=== PATIENT | female | born 1930 | race Caucasian/White ===

== ENCOUNTER 2017-10-13 15:03 | Emergency (ER) | payer MEDICARE, OTHER ==
[~2017-10-13] VITALS: Ht 162.6 cm; Wt 71.0 kg
[~2017-10-13 15:03] MED LIST: BUPR-197 PO; LEXA20TA PO; OXYC-103 PO; PROT40TA PO; SIMV5TAB32 PO; SYNT88TA PO
[2017-10-13 15:07] VITALS: BP 170/69; PULSE 86; RESP 18; TEMP 97.5; O2SAT 99
[2017-10-13 17:08] LABS: AUTOMATED NEUTROPHIL # 8.3 TH/MM3 (1.8-7.7); BASOPHIL # 0.1 TH/MM3 (0-0.2); BASOPHIL % 0.7 % (0.0-2.0); EOSINOPHIL # 0.1 TH/MM3 (0-0.4); EOSINOPHIL % 0.8 % (0.0-4.0); HEMATOCRIT 39.5 % (35.0-46.0); HEMOGLOBIN 14.4 GM/DL (11.6-15.3); LYMPH % 11.1 % (9.0-44.0); LYMPHOCYTE # 1.2 TH/MM3 (1.0-4.8); MEAN CELL VOLUME 93.5 FL (80.0-100.0); MEAN PLATELET VOLUME 9.3 FL (7.0-11.0); MONOCYTE # 0.8 TH/MM3 (0-0.9); NEUT % 79.4 % (16.0-70.0); PLATELET COUNT 299 TH/MM3 (150-450); RED BLOOD COUNT 4.23 MIL/MM3 (4.00-5.30); RED CELL DISTRIBUTION WIDTH 13.5 % (11.6-17.2); WHITE BLOOD COUNT 10.5 TH/MM3 (4.0-11.0)
[2017-10-13 17:12] LABS: MEAN CORPUSCULAR HGB CONC 36.4 % (32.0-36.0)
[2017-10-13 17:27] LABS: ALBUMIN 3.4 GM/DL (3.4-5.0); AST (GOT) 10 U/L (15-37); BICARBONATE 24.8 MEQ/L (21.0-32.0); BLOOD UREA NITROGEN 14 MG/DL (7-18); CALCIUM 9.3 MG/DL (8.5-10.1); CHLORIDE 108 MEQ/L (98-107); CREATININE 0.96 MG/DL (0.50-1.00); GLOMERULAR FILTRATION RATE 55 ML/MIN (>89); GLUCOSE,RANDOM 75 MG/DL (74-106); SODIUM (NA) 143 MEQ/L (136-145)
[2017-10-13 17:28] LABS: ALT (GPT) 10 U/L (10-53)
[2017-10-13 17:31] LABS: ALKALINE PHOSPHATASE 118 U/L (45-117); TOTAL BILIRUBIN ADULT 0.3 MG/DL (0.2-1.0); TOTAL PROTEIN 6.8 GM/DL (6.4-8.2)
[2017-10-13] MEDS ORDERED: [UNRECOGNIZED DRUG - CODE] PO (17:49)
[2017-10-13] MEDS ORDERED: TRAM50TA PO (17:49)
[2017-10-13] MEDS ORDERED: BUSP15TA PO (17:49)
[2017-10-13] MEDS ORDERED: PROZ40CA PO (17:49)
[2017-10-13 18:07] VITALS: BP 150/65; PULSE 72; RESP 17; O2SAT 99
[2017-10-13] MEDS ORDERED: POTASSIUM CHLORIDE 20 MEQ CONTROLLED RELEASE TAB PO ONE (18:15)
--- NOTE | 2017-10-13 18:22 | PD ---
HPI Chief Complaint: Psychiatric Symptoms Time Seen by Provider: 17:49 Travel History International Travel<30 days: No Contact w/Intl Traveler<30days: No Traveled to known affect area: No History of Present Illness HPI 86-year-old female presents to the emergency Department voluntarily for psychiatric evaluation. She was sent in by her primary care provider, Dr. Mata. Patient denies suicidal ideation, but says she "just wants to ." She says she doesn't want to hurt herself. Reports depression, sadness and anxiety. Says she "just doesn't want to wake up." She says she is all alone and her 2-1/2 years ago. She doesn't have any family. She does have friends and lives in a detention facility. She denies auditory or visual hallucinations. Denies illicit drug use, EtOH. She has no emergent medical complaints at this time. Denies chest pain, shortness of breath, abdominal pain, dysuria, change in stool. Denies recent illness. Onset unknown. Duration unknown. Aggravated by the feelings of being alone. No known relieving factors. Takes Prozac, Ambien, BuSpar, and clonazepam. History of depression. Denies other significant past medical history. Has no other medical complaints. No other modifying factors or associated signs and symptoms. PFSH Past Medical History Autoimmune Disease: No Blood Disorders: No Anxiety: Yes Depression: Yes Cancer: No High Cholesterol: Yes Chemotherapy: No Diabetes: No Diminished Hearing: Yes (BILAT [place]) Endocrine: Yes GERD: No Glaucoma: No Genitourinary: No Hepatitis: No Hiatal Hernia: No Immune Disorder: No Kidney Stones: No Psychiatric: Yes Reproductive: No Radiation Therapy: No Renal Failure: No Sickle Cell Disease: No Thyroid Disease: Yes (HYPO) Ulcer: No Tetanus Vaccination: Unknown Past Surgical History Abdominal Surgery: Yes (RUPTURED SPLEEN) AICD: No Appendectomy: No Arteriovenous Shunt: No Cholecystectomy: Yes Insulin Pump: No Joint Replacement: No Pacemaker: No Social History Alcohol Use: No Tobacco Use: No Substance Use: No Allergies-Medications (Allergen,Severity, Reaction): Coded Allergies: Sulfa (Sulfonamide Antibiotics) (Unverified Allergy, Severe, 10/13/17) Reported Meds & Prescriptions Reported Meds & Active Scripts Active Reported Anacin 400-32 mg Tablet (Aspirin/Caffeine) 400 Mg-32 Mg Tablet PO 6XDAY PRN Buspirone (Buspirone HCl) 15 Mg Tab 15 Mg PO TID PRN Tramadol (Tramadol HCl) 50 Mg Tab 50 Mg PO Q4H PRN Prozac (Fluoxetine HCl) 40 Mg Cap 40 Mg PO DAILY Review of Systems Except as stated in HPI: all other systems reviewed are Neg Physical Exam Narrative GENERAL: Well-nourished, well-developed elderly, female patient, in no acute distress SKIN: Warm and dry. HEAD: Atraumatic. Normocephalic. EYES: Pupils equal and round. ENT: Mucosa pink and moist. NECK: Supple. Trachea midline. CARDIOVASCULAR: Regular rate and rhythm. No murmur appreciated. RESPIRATORY: No accessory muscle use. Clear to auscultation. Breath sounds equal bilaterally. GASTROINTESTINAL: Abdomen soft, non-tender, nondistended. Hepatic and splenic margins not palpable. Bowel sounds are active 4 quadrants. MUSCULOSKELETAL: No obvious deformities. No clubbing. No cyanosis. No edema. BACK: No CVA tenderness. NEUROLOGICAL: Awake and alert. Oriented 3. No obvious cranial nerve deficits. Motor grossly within normal limits. Normal speech. Moves all extremities. 5/5 strength to all extremities. PSYCHIATRIC: No delusional thought processes. No hallucinations. Data Data Last Documented VS Vital Signs Date Time Temp Pulse Resp B/P (MAP) Pulse Ox O2 Delivery O2 Flow Rate FiO2 10/13/17 18:07 72 17 150/65 (93) 99 Room Air 10/13/17 15:07 97.5 Orders Orders Complete Blood Count With Diff (10/13/17 15:27) Comprehensive Metabolic Panel (10/13/17 15:27) Urinalysis - C+S If Indicated (10/13/17 15:27) Psych Screen (10/13/17 15:27) Potassium Chloride (Kcl) (10/13/17 18:15) Diet Regular Basic (10/13/17 Dinner) Labs Laboratory Tests Test 10/13/17 15:47 White Blood Count 10.5 TH/MM3 Red Blood Count 4.23 MIL/MM3 Hemoglobin 14.4 GM/DL Hematocrit 39.5 % Mean Corpuscular Volume 93.5 FL Mean Corpuscular Hemoglobin 34.0 PG Mean Corpuscular Hemoglobin Concent 36.4 % Red Cell Distribution Width 13.5 % Platelet Count 299 TH/MM3 Mean Platelet Volume 9.3 FL Neutrophils (%) (Auto) 79.4 % Lymphocytes (%) (Auto) 11.1 % Monocytes (%) (Auto) 8.0 % Eosinophils (%) (Auto) 0.8 % Basophils (%) (Auto) 0.7 % Neutrophils # (Auto) 8.3 TH/MM3 Lymphocytes # (Auto) 1.2 TH/MM3 Monocytes # (Auto) 0.8 TH/MM3 Eosinophils # (Auto) 0.1 TH/MM3 Basophils # (Auto) 0.1 TH/MM3 CBC Comment AUTO DIFF Differential Comment AUTO DIFF CONFIRMED Platelet Estimate NORMAL Platelet Morphology Comment NORMAL Blood Urea Nitrogen 14 MG/DL Creatinine 0.96 MG/DL Random Glucose 75 MG/DL Total Protein 6.8 GM/DL Albumin 3.4 GM/DL Calcium Level 9.3 MG/DL Alkaline Phosphatase 118 U/L Aspartate Amino Transf (AST/SGOT) 10 U/L Alanine Aminotransferase (ALT/SGPT) 10 U/L Total Bilirubin 0.3 MG/DL Sodium Level 143 MEQ/L Potassium Level 3.1 MEQ/L Chloride Level 108 MEQ/L Carbon Dioxide Level 24.8 MEQ/L Anion Gap 10 MEQ/L Estimat Glomerular Filtration Rate 55 ML/MIN MDM Medical Decision Making Medical Screen Exam Complete: Yes Emergency Medical Condition: Yes Medical Record Reviewed: Yes Differential Diagnosis Depression, anxiety, medical clearance for psychological evaluation Narrative Course 86-year-old female presents voluntarily for psychological evaluation. Denies being suicidal and not wanting to harm herself, but wants to . She has history of depression. She has no emergent medical complaints. 1815: CBC unremarkable. Potassium 3.1, otherwise CMP unremarkable. 40 MeQ potassium chloride ordered. Patient presents voluntarily. Physical examination and vital signs are essentially unremarkable. Patient has no medical complaints to report. Psych screen has been ordered. If the laboratory results are unremarkable, the patient will be medically cleared for psychiatric evaluation and disposition. Diagnosis Primary Impression: Encounter for psychological evaluation Additional Impression: Hypokalemia Condition: Stable Lizz Mishra Oct 13, 2017 18:22
[2017-10-13 21:15] LABS: BACTERIA, URINE OCC /hpf; BILIRUBIN, URINE NEG (NEG); BLOOD, URINE NEG (NEG); GLUCOSE,URINE NEG (NEG); HYALINE CAST, URINE 11 /lpf (RARE); KETONE, URINE NEG (NEG); MUCUS URINE FEW /lpf (OCC); NITRITE,URINE NEG (NEG); SQUAMOUS EPITHELIAL CELL URINE <1 /hpf (0-5); URINE COLOR LIGHT-YELLOW (YELLW/STRAW); URINE LEUKOCYTE ESTERASE LARGE (NEG)
[2017-10-14] MEDS ORDERED: MACR100C2 PO (02:39)
--- NOTE | 2017-10-14 02:41 | PD ---
Physical Exam Date Seen by Provider: Oct 14, 2017 Time Seen by Provider: 02:40 Data Data Last Documented VS Vital Signs Date Time Temp Pulse Resp B/P (MAP) Pulse Ox O2 Delivery O2 Flow Rate FiO2 10/13/17 18:07 72 17 150/65 (93) 99 Room Air 10/13/17 15:07 97.5 Orders Orders Complete Blood Count With Diff (10/13/17 15:27) Comprehensive Metabolic Panel (10/13/17 15:27) Urinalysis - C+S If Indicated (10/13/17 15:27) Psych Screen (10/13/17 15:27) Potassium Chloride (Kcl) (10/13/17 18:15) Diet Regular Basic (10/13/17 Dinner) Urine Culture (10/13/17 19:25) Nitrofurantoin Monohyd Macrocr (Macrobid (10/14/17 02:45) Labs Laboratory Tests Test 10/13/17 15:47 10/13/17 19:25 White Blood Count 10.5 TH/MM3 Red Blood Count 4.23 MIL/MM3 Hemoglobin 14.4 GM/DL Hematocrit 39.5 % Mean Corpuscular Volume 93.5 FL Mean Corpuscular Hemoglobin 34.0 PG Mean Corpuscular Hemoglobin Concent 36.4 % Red Cell Distribution Width 13.5 % Platelet Count 299 TH/MM3 Mean Platelet Volume 9.3 FL Neutrophils (%) (Auto) 79.4 % Lymphocytes (%) (Auto) 11.1 % Monocytes (%) (Auto) 8.0 % Eosinophils (%) (Auto) 0.8 % Basophils (%) (Auto) 0.7 % Neutrophils # (Auto) 8.3 TH/MM3 Lymphocytes # (Auto) 1.2 TH/MM3 Monocytes # (Auto) 0.8 TH/MM3 Eosinophils # (Auto) 0.1 TH/MM3 Basophils # (Auto) 0.1 TH/MM3 CBC Comment AUTO DIFF Differential Comment AUTO DIFF CONFIRMED Platelet Estimate NORMAL Platelet Morphology Comment NORMAL Blood Urea Nitrogen 14 MG/DL Creatinine 0.96 MG/DL Random Glucose 75 MG/DL Total Protein 6.8 GM/DL Albumin 3.4 GM/DL Calcium Level 9.3 MG/DL Alkaline Phosphatase 118 U/L Aspartate Amino Transf (AST/SGOT) 10 U/L Alanine Aminotransferase (ALT/SGPT) 10 U/L Total Bilirubin 0.3 MG/DL Sodium Level 143 MEQ/L Potassium Level 3.1 MEQ/L Chloride Level 108 MEQ/L Carbon Dioxide Level 24.8 MEQ/L Anion Gap 10 MEQ/L Estimat Glomerular Filtration Rate 55 ML/MIN Urine Color LIGHT-YELLOW Urine Turbidity CLEAR Urine pH 7.0 Urine Specific [place] 1.010 Urine Protein NEG mg/dL Urine Glucose (UA) NEG mg/dL Urine Ketones NEG mg/dL Urine Occult Blood NEG Urine Nitrite NEG Urine Bilirubin NEG Urine Urobilinogen LESS THAN 2.0 MG/DL Urine Leukocyte Esterase LARGE Urine RBC LESS THAN 1 /hpf Urine WBC 20 /hpf Urine Squamous Epithelial Cells <1 /hpf Urine Bacteria OCC /hpf Urine Hyaline Casts 11 /lpf Urine Mucus FEW /lpf Microscopic Urinalysis Comment CULTURE INDICATED MDM Medical Record Reviewed: Yes Supervised Visit with SLOAN: Yes Interpretation(s) Laboratory Tests Test 10/13/17 15:47 10/13/17 19:25 White Blood Count 10.5 TH/MM3 Red Blood Count 4.23 MIL/MM3 Hemoglobin 14.4 GM/DL Hematocrit 39.5 % Mean Corpuscular Volume 93.5 FL Mean Corpuscular Hemoglobin 34.0 PG Mean Corpuscular Hemoglobin Concent 36.4 % Red Cell Distribution Width 13.5 % Platelet Count 299 TH/MM3 Mean Platelet Volume 9.3 FL Neutrophils (%) (Auto) 79.4 % Lymphocytes (%) (Auto) 11.1 % Monocytes (%) (Auto) 8.0 % Eosinophils (%) (Auto) 0.8 % Basophils (%) (Auto) 0.7 % Neutrophils # (Auto) 8.3 TH/MM3 Lymphocytes # (Auto) 1.2 TH/MM3 Monocytes # (Auto) 0.8 TH/MM3 Eosinophils # (Auto) 0.1 TH/MM3 Basophils # (Auto) 0.1 TH/MM3 CBC Comment AUTO DIFF Differential Comment AUTO DIFF CONFIRMED Platelet Estimate NORMAL Platelet Morphology Comment NORMAL Blood Urea Nitrogen 14 MG/DL Creatinine 0.96 MG/DL Random Glucose 75 MG/DL Total Protein 6.8 GM/DL Albumin 3.4 GM/DL Calcium Level 9.3 MG/DL Alkaline Phosphatase 118 U/L Aspartate Amino Transf (AST/SGOT) 10 U/L Alanine Aminotransferase (ALT/SGPT) 10 U/L Total Bilirubin 0.3 MG/DL Sodium Level 143 MEQ/L Potassium Level 3.1 MEQ/L Chloride Level 108 MEQ/L Carbon Dioxide Level 24.8 MEQ/L Anion Gap 10 MEQ/L Estimat Glomerular Filtration Rate 55 ML/MIN Urine Color LIGHT-YELLOW Urine Turbidity CLEAR Urine pH 7.0 Urine Specific [place] 1.010 Urine Protein NEG mg/dL Urine Glucose (UA) NEG mg/dL Urine Ketones NEG mg/dL Urine Occult Blood NEG Urine Nitrite NEG Urine Bilirubin NEG Urine Urobilinogen LESS THAN 2.0 MG/DL Urine Leukocyte Esterase LARGE Urine RBC LESS THAN 1 /hpf Urine WBC 20 /hpf Urine Squamous Epithelial Cells <1 /hpf Urine Bacteria OCC /hpf Urine Hyaline Casts 11 /lpf Urine Mucus FEW /lpf Microscopic Urinalysis Comment CULTURE INDICATED Differential Diagnosis . Narrative Course Patient's urinalysis shows 20 WBCs and positive for bacteria. She is given Macrobid 100 mg by mouth she'll be evaluated by the psychiatrist in the morning. A prescription for Macrobid 100 mg 1 by mouth twice a day for 7 days has been written. Diagnosis Primary Impression: Encounter for psychological evaluation Additional Impressions: Hypokalemia UTI Med/Other Pt SpecificInfo: Prescription(s) given Scripts Nitrofurantoin Monohydrate Macrocrystals (Macrobid) 100 Mg Cap 100 MG PO BID for Infection for 7 Days, #14 CAP 0 Refills Prov: Jerald Fernandez MD 10/14/17 Condition: Stable Artemio Pereyra Oct 14, 2017 02:41
[2017-10-14] MEDS ORDERED: NITROFURANTOIN MONOHYD MACROCR 100 MG CAP PO ONE (02:45)
[2017-10-14 06:36] VITALS: BP 196/82; PULSE 79; RESP 18; O2SAT 98
[2017-10-14] MEDS ORDERED: cloNIDine HCL 0.1 MG TAB PO ONE (06:45)
[2017-10-14 08:04] VITALS: BP 187/84; PULSE 76; RESP 16; O2SAT 98
--- NOTE | 2017-10-14 16:21 | PD ---
Data Data Last Documented VS Vital Signs Date Time Temp Pulse Resp B/P (MAP) Pulse Ox O2 Delivery O2 Flow Rate FiO2 10/14/17 18:23 10/14/17 08:04 76 16 98 Room Air 10/13/17 15:07 97.5 Orders Orders Complete Blood Count With Diff (10/13/17 15:27) Comprehensive Metabolic Panel (10/13/17 15:27) Urinalysis - C+S If Indicated (10/13/17 15:27) Psych Screen (10/13/17 15:27) Potassium Chloride (Kcl) (10/13/17 18:15) Diet Regular Basic (10/13/17 Dinner) Urine Culture (10/13/17 19:25) Nitrofurantoin Monohyd Macrocr (Macrobid (10/14/17 02:45) Clonidine (Catapres) (10/14/17 06:45) Diet Regular Basic (10/14/17 Breakfast) Diet Regular Basic (10/14/17 Lunch) Clonazepam (Klonopin) (10/14/17 16:30) Ed Discharge Order (10/14/17 16:21) Labs Laboratory Tests Test 10/13/17 15:47 10/13/17 19:25 White Blood Count 10.5 TH/MM3 Red Blood Count 4.23 MIL/MM3 Hemoglobin 14.4 GM/DL Hematocrit 39.5 % Mean Corpuscular Volume 93.5 FL Mean Corpuscular Hemoglobin 34.0 PG Mean Corpuscular Hemoglobin Concent 36.4 % Red Cell Distribution Width 13.5 % Platelet Count 299 TH/MM3 Mean Platelet Volume 9.3 FL Neutrophils (%) (Auto) 79.4 % Lymphocytes (%) (Auto) 11.1 % Monocytes (%) (Auto) 8.0 % Eosinophils (%) (Auto) 0.8 % Basophils (%) (Auto) 0.7 % Neutrophils # (Auto) 8.3 TH/MM3 Lymphocytes # (Auto) 1.2 TH/MM3 Monocytes # (Auto) 0.8 TH/MM3 Eosinophils # (Auto) 0.1 TH/MM3 Basophils # (Auto) 0.1 TH/MM3 CBC Comment AUTO DIFF Differential Comment AUTO DIFF CONFIRMED Platelet Estimate NORMAL Platelet Morphology Comment NORMAL Blood Urea Nitrogen 14 MG/DL Creatinine 0.96 MG/DL Random Glucose 75 MG/DL Total Protein 6.8 GM/DL Albumin 3.4 GM/DL Calcium Level 9.3 MG/DL Alkaline Phosphatase 118 U/L Aspartate Amino Transf (AST/SGOT) 10 U/L Alanine Aminotransferase (ALT/SGPT) 10 U/L Total Bilirubin 0.3 MG/DL Sodium Level 143 MEQ/L Potassium Level 3.1 MEQ/L Chloride Level 108 MEQ/L Carbon Dioxide Level 24.8 MEQ/L Anion Gap 10 MEQ/L Estimat Glomerular Filtration Rate 55 ML/MIN Urine Color LIGHT-YELLOW Urine Turbidity CLEAR Urine pH 7.0 Urine Specific [place] 1.010 Urine Protein NEG mg/dL Urine Glucose (UA) NEG mg/dL Urine Ketones NEG mg/dL Urine Occult Blood NEG Urine Nitrite NEG Urine Bilirubin NEG Urine Urobilinogen LESS THAN 2.0 MG/DL Urine Leukocyte Esterase LARGE Urine RBC LESS THAN 1 /hpf Urine WBC 20 /hpf Urine Squamous Epithelial Cells <1 /hpf Urine Bacteria OCC /hpf Urine Hyaline Casts 11 /lpf Urine Mucus FEW /lpf Microscopic Urinalysis Comment CULTURE INDICATED MDM Supervised Visit with SLOAN: No Narrative Course Spoke with Tiny, with psychiatry. Patient has appointment for follow-up with her psychiatrist. PCP stop prescribing her Klonopin. Tiny requests prescription for for Klonopin tablets which is reasonable. She has an appointment on Tuesday. Diagnosis Primary Impression: Encounter for psychological evaluation Additional Impressions: Hypokalemia UTI Additional Instruction: Follow-up with their psychiatrist this week as scheduled. Take Klonopin sparingly as needed for anxiety. Med/Other Pt SpecificInfo: Prescription(s) given Scripts Clonazepam (Klonopin) 0.5 Mg Tab 0.25 MG PO BID Y for ANXIETY, #6 TAB 0 Refills Prov: Cem Esparza MD 10/14/17 Nitrofurantoin Monohydrate Macrocrystals (Macrobid) 100 Mg Cap 100 MG PO BID for Infection for 7 Days, #14 CAP 0 Refills Prov: Jerald Fernandez MD 10/14/17 Disposition: 01 DISCHARGE HOME Condition: Stable Cem Esparza MD Oct 14, 2017 16:21
[2017-10-14] MEDS ORDERED: clonazePAM 0.5 MG TAB PO ONE (16:30)
--- NOTE | 2017-10-14 16:43 | PD ---
History of Present Illness Chief Complaint: Psychiatric Symptoms Time Seen by Provider: 15:55 Travel History International Travel<30 Days: No Contact w/Intl Traveler<30days: No Known affected area: No Legal Status Legal Status: Voluntary History of Present Illness: History of Present Illness HPI 86-year-old female with reported history of depression and anxiety who presents to the emergency Department voluntarily for psychiatric evaluation. Patient reports that she has been treated with Prozac, Klonopin, BuSpar for many years and that approximate 2 weeks ago her primary care provider stopped prescribing the Klonopin for her and instead prescribed BuSpar. She states that she was taken off the Klonopin because she has been experiencing multiple falls. Since she is been off the Klonopin she is reporting that she is been feeling anxious, having episodes of crying, being more isolative than usual. She is requesting an evaluation and would like to get back on the Klonopin because she feels the BuSpar is not helping her. She has an appointment with an outpatient psychiatrist Dr. Castle on Tuesday of next week and is looking forward to that appointment.. Electronic medical record is reviewed. No previous contact with [facility] psychiatry Department. Patient is seen in main ED. Her designated power of civil rights attorney, Maddie is present during evaluation. Patient is alert, oriented, female who is neatly dressed with fair hygiene and grooming. Her speech is clear, logical. Her mood is anxious. She strongly is seeking to obtain Klonopin. There is no psychosis, no erlinda or hypomania. Mood is depressed and anxious. She denies suicidal ideation and does endorse passive wishes. She states" if I were to it would be okay but I would never hurt myself." Patient states that she has been living at an elderly complex for the past 2 years and has good social support. Reports impairs sleep this despite taking Ambien on a daily basis. PFSH Past Medical History Autoimmune Disease: No Blood Disorders: No Anxiety: Yes Depression: Yes Cancer: No High Cholesterol: Yes Chemotherapy: No Diabetes: No Diminished Hearing: Yes (BILAT [place]) Endocrine: Yes GERD: No Glaucoma: No Genitourinary: No Hepatitis: No Hiatal Hernia: No Immune Disorder: No Kidney Stones: No Psychiatric: Yes Reproductive: No Radiation Therapy: No Renal Failure: No Sickle Cell Disease: No Thyroid Disease: Yes (HYPO) Ulcer: No Tetanus Vaccination: Unknown Past Surgical History Abdominal Surgery: Yes (RUPTURED SPLEEN) AICD: No Appendectomy: No Arteriovenous Shunt: No Cholecystectomy: Yes Insulin Pump: No Joint Replacement: No Pacemaker: No Psychiatric History Psychiatric History Hx Psychiatric Treatment: HX: DEPRESSION, ANXIETY and has been in treatment for the past 19 years History of Inpatient Treatment: No Guns or firearms in home: No Social History female who lives by herself . She is retired. Has a power of civil rights attorney and healthcare advocate present during the evaluation. Hx Alcohol Use: No Hx Tobacco Use: No Hx Substance Use: No (PT DENIES) Hx of Substance Use Treatment: No Allergies-Medications (Allergen,Severity, Reaction): Coded Allergies: Sulfa (Sulfonamide Antibiotics) (Unverified Allergy, Severe, 10/13/17) Reported Meds & Prescriptions Reported Meds & Active Scripts Active Macrobid (Nitrofurantoin Monoh/Nitrofur Macro) 100 Mg Cap 100 Mg PO BID 7 Days Reported Anacin 400-32 mg Tablet (Aspirin/Caffeine) 400 Mg-32 Mg Tablet PO 6XDAY PRN Buspirone (Buspirone HCl) 15 Mg Tab 15 Mg PO TID PRN Tramadol (Tramadol HCl) 50 Mg Tab 50 Mg PO Q4H PRN Prozac (Fluoxetine HCl) 40 Mg Cap 40 Mg PO DAILY Review of Systems Neurologic: COMPLAINS OF: Poor Balance Psychiatric: COMPLAINS OF: Anxiety, Depression Mental Status Examination Appearance: Appropriate Consciousness: Alert Orientation: x4 Motor Activity: Other (uses a walker) Speech: Unremarkable Language: Adequate Fund of Knowledge: Adequate Attention and Concentration: Adequate Memory: Unremarkable Mood: Appropriate, Anxious Affect: Appropriate Thought Process & Associations: Intact, Logical, Goal directed Thought Content: Appropriate Hallucination Type: None Delusion Type: None Suicidal Ideation: No Suicidal Plan: No Suicidal Intention: No Homicidal Ideation: No Homicidal Plan: No Homicidal Intention: No Insight: Fair Judgment: Adequate MDM Medical Decision Making Medical Record Reviewed: Yes Assessment/Plan History of Present Illness HPI 86-year-old female with reported history of depression and anxiety who comes into the emergency department on a voluntary basis requesting a psychiatric evaluation. Patient reports that over the past 2 weeks and coinciding with having stopped Klonopin she has been experiencing increase in symptoms of anxiety. She was prescribed boost bar for her anxiety but tells me that this has not been helping her. The patient is not psychotic, not manic, and denies suicidal homicidal ideation. She strongly advocates to be placed back on the Klonopin. She has an appointment with outpatient psychiatrist on Tuesday and plans on keeping that appointment. At this time I have discussed with the patient options including obtaining a small prescription for Klonopin at a lower dosage to help her until her appointment on Tuesday. She agrees with the plan. Power of civil rights attorney also agrees with the plan. She is provided psychoeducation. Patient at this time does not meet criteria for inpatient psychiatric treatment. Case discussed with Dr. Esparza. Recommend Klonopin 0.25 mg po q day until Tuesday when she has appointment with Dr. Castle. Psychiatrically clear for discharge from ED. Orders Orders Potassium Chloride (Kcl) (10/13/17 18:15) Diet Regular Basic (10/13/17 Dinner) Urine Culture (10/13/17 19:25) Nitrofurantoin Monohyd Macrocr (Macrobid (10/14/17 02:45) Clonidine (Catapres) (10/14/17 06:45) Diet Regular Basic (10/14/17 Breakfast) Diet Regular Basic (10/14/17 Lunch) Clonazepam (Klonopin) (10/14/17 16:30) Ed Discharge Order (10/14/17 16:21) Results Vital Signs Date Time Temp Pulse Resp B/P (MAP) Pulse Ox O2 Delivery O2 Flow Rate FiO2 10/14/17 08:04 76 16 187/84 (118) 98 Room Air 10/14/17 06:36 79 18 196/82 (120) 98 Room Air 10/13/17 18:07 72 17 150/65 (93) 99 Room Air Laboratory Tests Test 10/13/17 19:25 Urine Color LIGHT-YELLOW Urine Turbidity CLEAR Urine pH 7.0 Urine Specific [place] 1.010 Urine Protein NEG Urine Glucose (UA) NEG Urine Ketones NEG Urine Occult Blood NEG Urine Nitrite NEG Urine Bilirubin NEG Urine Urobilinogen LESS THAN 2.0 Urine Leukocyte Esterase LARGE Urine RBC LESS THAN 1 Urine WBC 20 Urine Squamous Epithelial Cells <1 Urine Bacteria OCC Urine Hyaline Casts 11 Urine Mucus FEW Microscopic Urinalysis Comment CULTURE INDICATED Date/Time Source Procedure Growth Status 10/13/17 19:25 Urine Clean Catch Urine Culture - Preliminary IMMATURE GROWTH - REINCUBATE Resulted Diagnosis Primary Impression: Adjustment disorder Additional Impressions: Hypokalemia UTI Psychiatrically Cleared: Yes Additional Instructions: Follow-up with their psychiatrist this week as scheduled. Take Klonopin sparingly as needed for anxiety. Prescriptions Clonazepam (Klonopin) 0.5 Mg Tab 0.25 MG PO BID Y for ANXIETY, #6 TAB 0 Refills Prov: Cem Esparza MD 10/14/17 Nitrofurantoin Monohydrate Macrocrystals (Macrobid) 100 Mg Cap 100 MG PO BID for Infection for 7 Days, #14 CAP 0 Refills Prov: Jerald Fernandez MD 10/14/17 Disposition: 01 DISCHARGE HOME Condition: Stable Problem Qualifiers Primary Impression: Adjustment disorder Qualified Codes: F43.23 - Adjustment disorder with mixed anxiety and depressed mood Tiny Cunningham [facility] Oct 14, 2017 16:42
[2017-10-14] MEDS ORDERED: CLON.5 PO (17:05)
== END 2017-10-14 18:23 | disposition home or self-care (01) ==
LOC: NEPD 15:03
DX: F43.23 Adjustment disorder with mixed anxiety and depressed mood (principal); E87.6 Hypokalemia; N39.0 Urinary tract infection, site not specified
CPT/HCPCS: 80053; 81001; 85025; 87086; 99283